=== PATIENT | male | born 1950 | race Caucasian/White ===

== ENCOUNTER 2018-02-21 16:04 | Emergency (ER) | payer MEDICARE, SELFPAY ==
[2018-02-21 16:12] VITALS: BP 112/69; PULSE 60; RESP 20; TEMP 36.6; O2SAT 100; BMI 21.9
--- NOTE | 2018-02-21 16:18 | PC.NURSE ---
Laceration sustained by machinery working at home. about 1.5cm U shape wound around medial side of R thumb. Small bleeding noted and pt had applied direct pressure and ice pack [employer]NA[employer]. Td injection maybe in 2015/2016. Pt had lightheadedness on the way to ER, pt remaining in supine position while waiting and for RAD testing.
--- NOTE | 2018-02-21 16:27 | DI.RAD.S_ITS ---
PROCEDURE: XR FINGER RT MIN 2V INDICATIONS: laceration to right thumb - foreign bodies. TECHNIQUE: AP hand, 2 views of the first finger(s) acquired. COMPARISON: None. FINDINGS: Bones: No fractures or dislocations. No suspicious bony lesions. Soft tissues: No suspicious soft tissue calcifications. IMPRESSION: No fracture or foreign body seen. Dictated by: Valeriy Ballard M.D. on 02/21/2018 at 17:35 Approved by: Valeriy Ballard M.D. on 02/21/2018 at 17:36
--- NOTE | 2018-02-21 17:12 | PC.NURSE ---
Wound cleansed with pressure irrigation of NS. pt had mild vasovagal sx-lightheadedness but tolerated. DR BOWER suturing the site.
--- NOTE | 2018-02-21 17:31 | PC.NURSE ---
Pt and MOP evaluated by counselor via phone-[facility]gu[facility]. PA conversing with the counselor.
--- NOTE | 2018-02-21 17:55 | PC.NURSE ---
Wound dressed after bacitrain applied and covered with non-adhesive dressing, kurling and tubular gauze. Pt advised to keep dressing CDI for 24hrs and recheck wound.
--- NOTE | 2018-02-21 17:59 | ED_ITS ---
HPI - Wound/Laceration General Chief Complaint: Wound/Laceration Stated Complaint: CUT RT THUMB History of Present Illness HPI narrative: HPI 68-year-old male non-smoker presents for evaluation of a laceration on the medial aspect of his thumb immediately lateral to the nail bed that he sustained several hours prior to arrival when he was attempting to free a rototiller chandan and the clutch inadvertently engaged leading to the tiller blades striking his thumb. TD up to date. ROS with no recent constitutional symptoms. Exam Gen: Pleasant, nontoxic-appearing, resting comfortably. HEENT: NC, AT, PEERL, EOMI. Resp: Unlabored respirations with a normal work of breathing. Card: Extremities warm and well perfused. GI: Non-distended. : Deferred MSK: right thumb with a 2.5-3 cm long laceration starting at the distal aspect of the medial nail fold, laceration extends along the nail fold margin to the intersection of the proximal nail fold before transversely extending in a curvilinear U-shape to the pad of the finger. Patient with 5/5 flexion, extension, abduction, adduction without laxity or malalignment at the IP and MCP joints, brisk distal capillary refill, distal sensation grossly intact to touch. Neuro: AO x 3, no facial asymmetry, vision and hearing WNL. Heme/Lymph: Deferred Skin: Normal color with no visible lesions (other than noted above). Psych: Mood and affect appropriate. XR R thumb: no fracture or foreign body seen. MDM Previous chart, nursing note, and vitals reviewed. A/P: 68-year-old male non-smoker presents for evaluation of a laceration on the medial aspect of his thumb immediately lateral to the nail bed that he sustained several hours prior to arrival when he was attempting to free a rototiller chandan and the clutch inadvertently engaged leading to the tiller blades striking his thumb; TD up to date. CMS intact. Laceration repaired as documented below, cephalexin for prophylaxis provided. Patient to follow up with orthopedics. Laceration Repair Verbal consent obtained. Wound cleaned with 500 mL sterile saline with pressure irrigation. After 30 seconds of cleaning with chlorhexidine a proximal digital block was performed using approximately 2 ML in total of 1% lidocaine with epinephrine. Good anesthesia achieved. Minimal debriding of tissue required. No foreign bodies removed, entirety of wound well visualized with no remaining foreign bodies appreciated. Using a clean procedure the wound was repaired with 3 4-0 Vicryl buried sutures , dermal layer closed with 10 4-0nylon simple interrupted sutures. No undermining required, patient tolerated the procedure well without apparent complications. Impression: laceration (please reference below for remainder of encounter information) [facility] Social History Smoking Status: Never smoker Exam Initial Vital Signs Initial Vital Signs: Vital Signs Temperature 97.8 F 02/21/18 16:12 Pulse Rate 60 02/21/18 16:12 Respiratory Rate 20 02/21/18 16:12 Blood Pressure 112/69 02/21/18 16:12 Pulse Oximetry 100 02/21/18 16:12 Course Orders Ordered: ED Orders 02/21/18 16:27 XR finger RT min 2V Stat Vital Signs - 8 hr 02/21/18 16:12 Temperature 97.8 F Pulse Rate 60 Respiratory Rate 20 Blood Pressure 112/69 Pulse Oximetry 100
[2018-02-21 18:03] VITALS: BP 96/63; PULSE 61; RESP 14; O2SAT 100
--- NOTE | 2018-02-21 18:03 | PC.NURSE ---
Vs obtained and noted BP as 96/63. Pt denies cp, sob or dizziness at this time and states it is his normal range BP.
[2018-02-21] MEDS: cephALEXin 250 MG PREPACK 1 BOTTLE MISC (18:45)
== END 2018-02-21 18:15 | disposition home or self-care (01) ==
LOC: ED 18:18
PROVIDERS: Emergency Provider Emergency Medicine
DX: S61.011A Laceration without foreign body of right thumb without damage to nail, initial encounter (principal); W29.3XXA Contact with powered garden and outdoor hand tools and machinery, initial encounter
CPT/HCPCS: 12001; 73140; 99283; 99284

== ENCOUNTER → 2020-10-26 13:14 | Outpatient (CLI) | payer OTHER, SELFPAY ==
[2020-10-26] MEDS: COVID-19 VACC, Ad26(JANSSEN)/PF 0.5 ML IM (13:21)
== END ==
PROVIDERS: Visit Provider Internal Medicine
DX: Z23 Encounter for immunization (principal)
CPT/HCPCS: 0031A; 91303

== ENCOUNTER 2022-04-10 13:07 | Emergency (ER) | payer MEDICARE, SELFPAY ==
[2022-04-10] VITALS (7 sets, daily range): BP systolic 122–138; BP diastolic 60–74; PULSE 58–63; RESP 14–16; O2SAT 94–100; BMI 23.1
--- NOTE | 2022-04-10 16:32 | PC.NURSE ---
After swallow screen, pt began hiccuping and states It feels constricted in the the lower throat area. He had to spit up water back into the bag. Dr. Garvey notified.
--- NOTE | 2022-04-10 16:35 | ED.SKABFB ---
HPI - Skin/Abscess/Foreign Bdy General Chief complaint: Skin/Abscess/Foreign Body Stated complaint: Can't swallow- throat constricted Time Seen by Provider: 04/10/22 15:43 Source: patient Mode of arrival: Ambulatory Limitations: no limitations History of Present Illness HPI narrative: Patient here for dysphagia. Since last night. He ate some potatoes as well as salmon. He had trouble with eating and swallowing the salmon. Since then he is had reflux as well as difficulty swallowing saliva. Bedside testing with water is in able to complete a cup of water. He is spitting up the water. States 10 years ago had similar symptoms and sounds like he had esophageal dilatation. Is not on daily antacids. No trouble breathing. Denies any chest pain. Related Data Previous Rx's Medication Instructions Recorded cephalexin 500 mg capsule 500 mg PO QID #40 caps 02/21/18 hydrocodone 5 mg-acetaminophen 325 See Rx Instructions .Route 02/21/18 mg tablet ([place]) .COMPLEX #10 tabs pantoprazole 40 mg tablet,delayed 40 mg PO DAILY #30 tabs 04/10/22 release (Protonix) Allergies Allergy/AdvReac Type Severity Reaction Status Date / Time No Known Drug Allergies Allergy Verified 04/10/22 13:30 Review of Systems Review of Systems Narrative: GENERAL: Denies chills, fatigue, malaise, fever, sweats. HEENT: Denies sinus pain, ear pain, sore throat RESPIRATORY: Denies dyspnea, cough CARDIOVASCULAR: Denies chest pain, palpitations GASTROINTESTINAL: Denies nausea, vomiting, abdominal pain, positive for dysphagia : Denies dysuria, frequency, hematuria MUSCULOSKELETAL: denies muscle or bony pain SKIN: Denies rash, skin lesions NEUROLOGIC: Denies weakness, numbness ROS Unobtainable: All systems reviewed & are unremarkable except as noted in HPI and below Patient History Social History Smoking Status: Never smoker Smoking Status: Never smoker alcohol intake frequency: 0-2 drinks per day Substance Use Type: does not use Exam Narrative Exam Narrative: GENERAL: in no distress, not toxic not dyspneic HEAD: Normocephalic. EYES: Pupils equal round No scleral icterus. ENT: Mucous membranes moist. NECK: Trachea midline. CARDIOVASCULAR: Regular rate and rhythm without murmurs RESPIRATORY: Clear to auscultation. Breath sounds equal bilaterally. No wheezes, rales, or rhonchi. GASTROINTESTINAL: Abdomen soft, non-tender EXTREMITIES: No gross deformities. NEURO: AOx4. SKIN: Warm and dry PSYCH: Not anxious, is cooperative Initial Vital Signs Initial Vital Signs: Vital Signs Pulse Rate 60 04/10/22 13:30 Respiratory Rate 14 04/10/22 13:30 Blood Pressure 138/60 04/10/22 13:30 Pulse Oximetry 100 04/10/22 13:30 Oxygen Delivery Method 04/10/22 13:30 Course Course Course Narrative: No new issues during course of stay Orders Ordered: ED Orders 04/10/22 16:38 CBC Auto Diff [Complete Blood Count AUTO DIFF] Stat CMP [Comprehensive Metabolic Panel] Stat Discontinued Medications Glucagon (Glucagon,Human Recombinant 1 Mg/Ml Vial) 1 mg IV NOW ONE Stop: 04/10/22 16:36 Last Admin: 04/10/22 17:16 Dose: 1 mg Documented By: JARON Pantoprazole Sodium (Pantoprazole 40 Mg Vial) 40 mg IV NOW ONE Stop: 04/10/22 17:37 Last Admin: 04/10/22 17:42 Dose: 40 mg Documented By: NARAYAN Reevaluation(s) Reevaluation #1: Patient able to drink a glass of water without vomiting. Feeling much better at this time. Reviewed with patient likely will need esophageal dilatation but he does not want it today and desires follow-up with general surgeon to do this. Time: 17:37 Consultations Consultation #1: Spoke with general surgeon, Dr. Jones, patient can follow up in his office outpatient for evaluation for esophageal dilatation. Time: 17:37 Vital Signs Vital signs: Vital Signs - 8 hr 04/10/22 13:30 04/10/22 15:19 04/10/22 15:30 Pulse Rate 60 58 L Respiratory Rate 14 Blood Pressure 138/60 123/74 125/70 Pulse Oximetry 100 99 Oxygen Delivery Method Room Air 04/10/22 15:30 04/10/22 16:00 04/10/22 16:00 Pulse Rate 60 58 L Respiratory Rate Blood Pressure 126/66 Pulse Oximetry 99 99 Oxygen Delivery Method Room Air Room Air 04/10/22 16:30 04/10/22 17:00 04/10/22 18:06 Pulse Rate 58 L 60 63 Respiratory Rate 16 Blood Pressure 122/65 Pulse Oximetry 94 99 99 Oxygen Delivery Method Room Air Room Air Room Air MDM - Skin/Abscess/Foreign Bdy Lab Data Result diagrams: 04/10/22 16:38 04/10/22 16:38 Labs: Lab Results 04/10/22 04/10/22 Range/Units 16:38 16:38 WBC 6.2 (4.5-11.0) X10^3/uL RBC 5.01 (4.5-5.9) X10^6/uL Hgb 14.9 (13.5-17.5) g/dL Hct 43.8 (41-53) % MCV 87.5 (80-100) fL MCH 29.8 (26-34) PG MCHC 34.0 (30-36) % RDW 12.6 (11.6-14.8) % Plt Count 159 (150-400) X10^3/uL Neut % (Auto) 63.5 (50-75) % Lymph % (Auto) 23.9 L (25-40) % [place] % (Auto) 7.2 (3-14) % Eos % (Auto) 4.4 H (2-4) % Baso % (Auto) 1.0 (0-2) % Neut # (Auto) 3900 (9702-8578) /uL Lymph # (Auto) 1500 (6739-2287) /uL [place] # (Auto) 400 (0-900) /uL Eos # (Auto) 300 (0-450) /uL Baso # (Auto) 100 (0-100) /uL Sodium 143 (137-145) mmol/L Potassium 4.2 (3.4-5.1) mmol/L Chloride 105 (98-107) mmol/L Carbon Dioxide 25 (22-32) mmol/L BUN 19 (9-20) mg/dL Creatinine 0.95 (0.66-1.25) mg/dL Estimated GFR > 60 (>60) mL/min BUN/Creatinine Ratio 20.0 (6-22) Glucose 89 (80-110) mg/dL Calcium 9.0 (8.4-10.2) mg/dL Total Bilirubin 0.8 (0.2-1.3) mg/dL AST 36 (17-59) IU/L ALT 31 (<50) IU/L Alkaline Phosphatase 55 (38-126) U/L Total Protein 7.4 (6.3-8.2) g/dL Albumin 4.1 (3.5-5.0) g/dL Globulin 3.3 (1.7-4.1) g/dL Albumin/Globulin Ratio 1.2 (1.0-2.8) MDM Narrative Medical decision making narrative: Appropriate for discharge home. Patient maintaining airway. Also able to swallow fluids without vomiting. I did review with patient and general surgeon, appropriate for outpatient follow-up for evaluation of esophageal dysphagia, may need dilatation. Return precautions reviewed with patient. Not toxic at discharge. Discharge Plan Departure Patient Disposition: Home Clinical Impression: Esophageal dysphagia Instructions: Soft Diet, DI for Esophageal Dysphagia Activity Restrictions/Additional Instructions: Call provided general surgery office in the morning to arrange office appointment to evaluate for trouble swallowing. You may need endoscopy scheduled to evaluate this problem. In the meantime, be sure not to eat meat products. This may cause impaction into the esophagus. May continue soft diet. May have milk shakes/Jell-O/mesh potatoes for example. Return if worse if any questions or concerns Prescriptions: New pantoprazole [Protonix] 40 mg tablet,delayed release (DR/EC) 40 mg PO DAILY Qty: 30 0RF No Action hydrocodone-acetaminophen [[place]] 5-325 mg tablet See Rx Instructions .ROUTE .COMPLEX Qty: 10 0RF Rx Instructions: 1-2 tabs q6hr prn pain cephalexin 500 mg capsule 500 mg PO QID Qty: 40 0RF Referrals: Omero Jones MD [Physician] - Med Mcghee MD [Primary Care Provider] - Visit Report Forms: Patient Portal/API
[2022-04-10 17:01] LABS: Add Manual Diff / Slide Review NO; Basophils Absolute Auto 100 /uL (0-100); Eosinophils Absolute Auto 300 /uL (0-450); Eosinophils Percent Auto 4.4 % (2-4); Hematocrit 43.8 % (41-53); Hemoglobin 14.9 g/dL (13.5-17.5); Lymphocytes Absolute Auto 1500 /uL (1100-4500); Lymphocytes Percent Auto 23.9 % (25-40); Mean Corpuscular Hemoglobin 29.8 PG (26-34); Mean Corpuscular Volume 87.5 fL (80-100); Monocytes Absolute Auto 400 /uL (0-900); Monocytes Percent Auto 7.2 % (3-14); Neutrophils Absolute Auto 3900 /uL (1500-7000); Neutrophils Percent Auto 63.5 % (50-75); Platelet Count 159 X10^3/uL (150-400); Red Blood Cell Count 5.01 X10^6/uL (4.5-5.9); Red Cell Distribution Width 12.6 % (11.6-14.8); White Blood Cell Count 6.2 X10^3/uL (4.5-11.0)
[2022-04-10] MEDS: GLUCAGON,HUMAN RECOMBINANT 1 MG/ML VIAL IV (17:16)
[2022-04-10 17:24] LABS: Alanine Aminotransferase 31 IU/L (<50); Albumin 4.1 g/dL (3.5-5.0); Albumin Globulin Ratio 1.2 (1.0-2.8); Alkaline Phosphatase 55 U/L (38-126); Aspartate Aminotransferase 36 IU/L (17-59); Bilirubin Total 0.8 mg/dL (0.2-1.3); Blood Urea Nitrogen 19 mg/dL (9-20); Carbon Dioxide 25 mmol/L (22-32); Chloride 105 mmol/L (98-107); Estimated Glomerular Filt Rate > 60 mL/min (>60); Globulin 3.3 g/dL (1.7-4.1); Glucose 89 mg/dL (80-110); HEMOLYSIS 18 (0-50); Potassium 4.2 mmol/L (3.4-5.1); Sodium 143 mmol/L (137-145); Total Protein 7.4 g/dL (6.3-8.2)
[2022-04-10] MEDS: PANTOPRAZOLE 40 MG VIAL IV (17:42)
== END 2022-04-10 18:06 | disposition home or self-care (01) ==
PROVIDERS: Emergency Provider Emergency Medicine; PCP Family Medicine
DX: R13.10 Dysphagia, unspecified (principal)
CPT/HCPCS: 36415; 80053; 85025; 96374; 96375; 99284; C9113; J1610

== ENCOUNTER 2022-11-11 12:18 | Emergency (ER) | payer MEDICARE, SELFPAY ==
[2022-11-11 12:29] VITALS: BP 120/57; PULSE 65; RESP 18; TEMP 36.3; O2SAT 96; BMI 22.8
[2022-11-11] MEDS: TET,DIPH,PERTUSS(ACELL),VAC/PF 0.5 ML SYRINGE IM (13:09)
--- NOTE | 2022-11-11 18:59 | ED_ITS ---
HPI - Skin/Abscess/Foreign Bdy <Staci Bajwa PA-C - Last Filed: 11/11/22 20:34> General Chief complaint: Skin/Abscess/Foreign Body Stated complaint: Puncture wound in left leg, lower calf Time Seen by Provider: 11/11/22 12:42 Source: patient Mode of arrival: Ambulatory Limitations: no limitations History of Present Illness HPI narrative: 72-year-old male presents to the ED with 2 abrasions sustained to the anterior left lower leg yesterday. Patient states that he sustained the abrasions from scraping his garcia on a nail. Patient is concerned that his Tdap is not up-to-date and would like to get a Tdap shot. Denies fevers, chills, numbness, tingling, weakness. Related Data Previous Rx's Medication Instructions Recorded cephalexin 500 mg capsule 500 mg PO QID #40 caps 02/21/18 hydrocodone 5 mg-acetaminophen 325 See Rx Instructions .Route 02/21/18 mg tablet ([place]) .COMPLEX #10 tabs pantoprazole 40 mg tablet,delayed 40 mg PO DAILY #30 tabs 04/10/22 release (Protonix) Allergies Allergy/AdvReac Type Severity Reaction Status Date / Time Penicillins Allergy Intermediate Rash Verified 11/11/22 13:24 Review of Systems <Staci Bajwa PA-C - Last Filed: 11/11/22 20:34> Review of Systems ROS Unobtainable: All systems reviewed & are unremarkable except as noted in HPI and below Constitutional Constitutional: Denies chills, Denies fatigue, Denies fever(s), Denies frequent falls, Denies lethargy and Denies weakness Eyes Eyes: Denies change in vision, Denies eye discharge, Denies irritation and Denies loss of vision ENT Ears, Nose, Mouth, and Throat: Denies change in voice, Denies dizziness, Denies neck pain, Denies sore throat and Denies throat swelling Cardiovascular Cardiovascular: Denies chest pain, Denies irregular heart rhythm, Denies lightheadedness, Denies palpitations, Denies dyspnea, Denies dyspnea on exertion and Denies orthopnea Respiratory Respiratory: Denies cough, Denies dyspnea, Denies dyspnea on exertion and Denies wheezing Gastrointestinal Gastrointestinal: Denies abdominal pain, Denies change in bowel habits, Denies diarrhea, Denies nausea and Denies vomiting Genitourinary Genitourinary: Denies hematuria, Denies flank pain, Denies urinary incontinence and Denies urinary urgency Musculoskeletal Musculoskeletal: Denies back pain, Denies muscle weakness, Denies neck pain, Denies numbness and Denies tingling Integumentary/Breasts Skin/Breast: Denies pruritus, Denies erythema, Denies rash and Denies wounds Comments: Left lower leg abrasions Neurologic Neurologic: Denies behavioral changes, Denies confusion, Denies dizziness, Denies frequent falls, Denies loss of vision, Denies numbness, Denies tingling and Denies weakness Psychiatric Psychiatric: Denies anxiety, Denies behavioral changes, Denies confusion, Denies depression, Denies homicidal ideation and Denies suicidal ideation Endocrine Endocrine: Denies fatigue, Denies flushing and Denies palpitations Hematologic/Lymphatic Hematologic/Lymphatic: Denies easy bruising Allergic/Immunologic Allergic/Immunologic: Denies urticaria, Denies throat swelling and Denies wheezing Patient History <Staci Bajwa PA-C - Last Filed: 11/11/22 20:34> Social History Smoking Status: Never smoker Smoking Status: Never smoker alcohol intake frequency: 0-2 drinks per day Substance Use Type: does not use Exam <Staci Bajwa PA-C - Last Filed: 11/11/22 20:34> Narrative Exam Narrative: Const General:?cooperative, healthy appearing and comfortable [facility] Head:?normal to inspection Ears:?hearing grossly normal bilaterally Nose:?external nose normal Face and sinus:?normal facial exam and sinuses nontender Mouth:?oral mucosae normal Throat:?posterior oropharynx normal Eyes General:?appearance normal, both eyes and all related structures Neck Neck:?normal visual inspection and no lymphadenopathy noted Resp Effort & Inspection:?normal respiratory effort Auscultation:?clear to auscultation bilaterally Cardio Rate:?regular rate Rhythm:?regular rhythm Integumentary 2 abrasions noted to left garcia. Not bleeding and beginning to heal over. No signs of infection noted. Patient is neurovascularly intact. There is no bony tenderness to palpation. Neuro General:?patient alert, patient awake and patient oriented x3 Initial Vital Signs Initial Vital Signs: Vital Signs Temperature 97.4 F L 11/11/22 12:29 Pulse Rate 65 11/11/22 12:29 Respiratory Rate 18 11/11/22 12:29 Blood Pressure 120/57 L 11/11/22 12:29 Pulse Oximetry 96 11/11/22 12:29 Oxygen Delivery Method Room Air 11/11/22 12:29 <Ministerio Garcia DO - Last Filed: 11/12/22 11:02> Initial Vital Signs Initial Vital Signs: Vital Signs Temperature 97.4 F L 11/11/22 12:29 Pulse Rate 65 11/11/22 12:29 Respiratory Rate 18 11/11/22 12:29 Blood Pressure 120/57 L 11/11/22 12:29 Pulse Oximetry 96 11/11/22 12:29 Oxygen Delivery Method Room Air 11/11/22 12:29 Course <Staic Bajwa PA-C - Last Filed: 11/11/22 20:34> Orders Ordered: Discontinued Medications Diphtheria/Tetanus/Acell Pertussis (Tet,Diph,Pertuss(Acell),Vac/Pf 0.5 Ml Syringe) 0.5 ml IM .ONCE ONE Stop: 11/11/22 12:33 Last Admin: 11/11/22 13:09 Dose: 0.5 ml Documented By: KLS Vital Signs Vital signs: Vital Signs - 8 hr 11/11/22 12:29 Temperature 97.4 F L Pulse Rate 65 Respiratory Rate 18 Blood Pressure 120/57 L Pulse Oximetry 96 Oxygen Delivery Method Room Air <Ministerio Garcia DO - Last Filed: 11/12/22 11:02> Orders Ordered: Discontinued Medications Diphtheria/Tetanus/Acell Pertussis (Tet,Diph,Pertuss(Acell),Vac/Pf 0.5 Ml Syringe) 0.5 ml IM .ONCE ONE Stop: 11/11/22 12:33 Last Admin: 11/11/22 13:09 Dose: 0.5 ml Documented By: KLS Vital Signs Vital signs: Vital Signs - 8 hr 11/11/22 12:29 Temperature 97.4 F L Pulse Rate 65 Respiratory Rate 18 Blood Pressure 120/57 L Pulse Oximetry 96 Oxygen Delivery Method Room Air MDM - Skin/Abscess/Foreign Bdy <Staci Bajwa PA-C - Last Filed: 11/11/22 20:34> MDM Narrative Medical decision making narrative: 72-year-old male presents to the ED with 2 abrasions sustained to the anterior left lower leg yesterday. Patient's wounds are both abrasions, not requiring any repair or imaging. Tdap was updated. Patient is neurovascularly intact. Discussed signs of infection with patient. Wound care also discussed with patient. Patient agrees to return to the ED if he notes any signs of infection. Medical records reviewed: Yes Discharge Plan Departure Patient Disposition: Home Clinical Impression: Abrasion Instructions: DI for Abrasion Activity Restrictions/Additional Instructions: You were seen in the ED today for abrasions sustained on your left lower leg. The abrasions are shallow and do not need any interventions other than keeping it clean and dry and allowing them to heal. We have updated your tetanus shot today as well. As your wound heals, please monitor to look for signs of infection including redness, swelling, pain, discharge, warmth. Return to the ED if you note any signs of infection. Prescriptions: No Action pantoprazole [Protonix] 40 mg tablet,delayed release (DR/EC) 40 mg PO DAILY Qty: 30 0RF hydrocodone-acetaminophen [[place]] 5-325 mg tablet See Rx Instructions .ROUTE .COMPLEX Qty: 10 0RF Rx Instructions: 1-2 tabs q6hr prn pain cephalexin 500 mg capsule 500 mg PO QID Qty: 40 0RF Referrals: Med Mcghee MD [Primary Care Provider] - Stand Alone Forms: Patient Portal/API <Ministerio Garcia DO - Last Filed: 11/12/22 11:02> Cosign ED Attending Adiel Attestation: I was immediately available in the department for consultation. Documentation has been reviewed. I agree with assessment and plan.
== END 2022-11-11 13:15 | disposition home or self-care (01) ==
PROVIDERS: Emergency Provider Student in an Organized Health Care Education/Training Program; PCP Family Medicine
DX: S80.812A Abrasion, left lower leg, initial encounter (principal); Z23 Encounter for immunization
CPT/HCPCS: 90471; 99283; 90715

== ENCOUNTER 2023-04-19 16:49 | Observation (INO) | payer MEDICARE, SELFPAY ==
[2023-04-19] VITALS (7 sets, daily range): BP systolic 121–137; BP diastolic 75–86; PULSE 80–97; RESP 12–20; TEMP 36.2–37.1; O2SAT 93–98; BMI 22.4
--- NOTE | 2023-04-19 17:22 | ED.SKABFB ---
HPI - Skin/Abscess/Foreign Bdy General Chief complaint: Skin/Abscess/Foreign Body Stated complaint: blockage in esophagus Time Seen by Provider: 04/19/23 17:12 Source: patient Mode of arrival: Ambulatory Limitations: no limitations History of Present Illness HPI narrative: 73-year-old male presents from home by private vehicle for food bolus times 24 hours. Patient states that he was eating meat last night and it got hung up in his throat. He has been unable to tolerate his secretions and is spitting up into an emesis bag. Related Data Previous Rx's Medication Instructions Recorded cephalexin 500 mg capsule 500 mg PO QID #40 caps 02/21/18 hydrocodone 5 mg-acetaminophen 325 See Rx Instructions .Route 02/21/18 mg tablet ([place]) .COMPLEX #10 tabs pantoprazole 40 mg tablet,delayed 40 mg PO DAILY #30 tabs 04/10/22 release (Protonix) Allergies Allergy/AdvReac Type Severity Reaction Status Date / Time Penicillins Allergy Intermediate Rash Verified 11/11/22 13:24 Review of Systems Review of Systems Narrative: CONSTITUTIONAL- Denies: fever, chills, fatigue HEENT- Denies: sore throat, nosebleed, vision changes RESPIRATORY- Denies: shortness of breath, cough, wheezing CARDIAC- Denies: chest pain, edema, orthopnea GI-reports: Food bolus Denies: abdominal pain, nausea, vomiting, constipation, diarrhea - Denies: frequency, dysuria, hematuria, flank pain MSK- Denies: extremity pain, extremity swelling, joint pain, joint swelling SKIN- Denies: rash, itching, burn, swelling NEUROLOGICAL- Denies: headache, numbness, weakness, dizziness PSYCHIATRIC- Denies: anxiety, depression, suicidal ideation, homicidal ideation Patient History Social History Smoking Status: Never smoker Smoking Status: Never smoker alcohol intake frequency: 0-2 drinks per day Substance Use Type: does not use Exam Initial Vital Signs Initial Vital Signs: Vital Signs Temperature 98.7 F 04/19/23 17:00 Pulse Rate 97 H 04/19/23 17:00 Respiratory Rate 16 04/19/23 17:00 Blood Pressure 125/86 04/19/23 17:00 Pulse Oximetry 98 04/19/23 17:00 Oxygen Delivery Method Room Air 04/19/23 17:00 Const: Awake, alert, uncomfortable, sitting upright in bed, actively spitting into an emesis bag Eyes: PERRL, EOMI, conjunctiva normal ENT: Atraumatic, dentition normal, mucous membranes moist Cardiac: regular rate, regular rhythm RESP: unlabored, clear bilaterally, no wheezing GI: Atraumatic, soft, nontender, nondistended MSK: Atraumatic, full range of motion, pulses equal Skin: Warm, Dry, intact, no rashes Neuro: AO x3, CN II-XII grossly intact, moves all extremities Psych: affect normal, mood normal, not suicidal, not homicidal Course Course Course Narrative: Food bolus for 24 hours. Attempted to give patient fizzy drinks while jumping up and down, however this was unsuccessful. Attempted glucagon, patient attempted to vomit, however this was also unsuccessful. Call placed to general surgery, who will take the patient to the OR for esophageal food bolus Orders Ordered: ED Orders 04/19/23 17:15 CBC Auto Diff [Complete Blood Count AUTO DIFF] Stat CMP [Comprehensive Metabolic Panel] Stat PT [Prothrombin Time INR] Stat Discontinued Medications Glucagon (Glucagon,Human Recombinant 1 Mg/Ml Vial) 2 mg IV NOW ONE Stop: 04/19/23 17:15 Last Admin: 04/19/23 17:30 Dose: 2 mg Documented By: KM Consultations Consultation #1: Dr. Jones: Will take patient to OR for scope Vital Signs Vital signs: Vital Signs - 8 hr 04/19/23 17:00 Temperature 98.7 F Pulse Rate 97 H Respiratory Rate 16 Blood Pressure 125/86 Pulse Oximetry 98 Oxygen Delivery Method Room Air MDM - Skin/Abscess/Foreign Bdy Differential Diagnosis Differential diagnosis: Likely other (food bolus, vomiting, dysphagia) Lab Data 04/19/23 17:15 04/19/23 17:15 Labs: Lab Results 04/19/23 04/19/23 04/19/23 Range/Units 17:15 17:15 17:15 WBC 6.0 (4.5-11.0) X10^3/uL RBC 5.31 (4.5-5.9) X10^6/uL Hgb 16.1 (13.5-17.5) g/dL Hct 47.3 (41-53) % MCV 89.0 (80-100) fL MCH 30.4 (26-34) PG MCHC 34.1 (30-36) % RDW 12.9 (11.6-14.8) % Plt Count 149 L (150-400) X10^3/uL Neut % (Auto) 62.3 (50-75) % Lymph % (Auto) 24.2 L (25-40) % [place] % (Auto) 8.6 (3-14) % Eos % (Auto) 4.0 (2-4) % Baso % (Auto) 0.9 (0-2) % Neut # (Auto) 3700 (5498-0896) /uL Lymph # (Auto) 1400 (7709-1045) /uL [place] # (Auto) 500 (0-900) /uL Eos # (Auto) 200 (0-450) /uL Baso # (Auto) 100 (0-100) /uL PT 11.9 (10.1-12.7) SECONDS INR 1.0 (0.9-1.3) Sodium 139 (137-145) mmol/L Potassium 3.6 (3.4-5.1) mmol/L Chloride 107 (98-107) mmol/L Carbon Dioxide 21 L (22-32) mmol/L BUN 19 (9-20) mg/dL Creatinine 1.01 (0.66-1.25) mg/dL Estimated GFR > 60 (>60) mL/min BUN/Creatinine Ratio 18.8 (6-22) Glucose 94 (80-110) mg/dL Calcium 9.6 (8.4-10.2) mg/dL Total Bilirubin 1.2 (0.2-1.3) mg/dL AST 31 (17-59) IU/L ALT 40 (<50) IU/L Alkaline Phosphatase 59 (38-126) U/L Total Protein 7.8 (6.3-8.2) g/dL Albumin 4.3 (3.5-5.0) g/dL Globulin 3.5 (1.7-4.1) g/dL Albumin/Globulin Ratio 1.2 (1.0-2.8) Discharge Plan Departure Patient Disposition: Admitted as Observation Clinical Impression: Food bolus obstruction of intestine Admit Date/Time: 04/19/23 18:19 Admit Provider: Omero Jones
[2023-04-19] MEDS: GLUCAGON,HUMAN RECOMBINANT 1 MG/ML VIAL 2 MG IV (17:30)
--- NOTE | 2023-04-19 17:46 | PC.NURSE ---
Pt reports he feels like there is steak caught in his throat from last night at 1700. Pt states he cannot swallow his own secretions.
[2023-04-19 17:51] LABS: Prothrombin Time 11.9 SECONDS (10.1-12.7)
[2023-04-19 17:52] LABS: Add Manual Diff / Slide Review NO; Basophils Absolute Auto 100 /uL (0-100); Basophils Percent Auto 0.9 % (0-2); Eosinophils Absolute Auto 200 /uL (0-450); Hematocrit 47.3 % (41-53); Hemoglobin 16.1 g/dL (13.5-17.5); Lymphocytes Absolute Auto 1400 /uL (1100-4500); Lymphocytes Percent Auto 24.2 % (25-40); Mean Corpuscular HGB Conc 34.1 % (30-36); Mean Corpuscular Hemoglobin 30.4 PG (26-34); Monocytes Absolute Auto 500 /uL (0-900); Monocytes Percent Auto 8.6 % (3-14); Neutrophils Absolute Auto 3700 /uL (1500-7000); Neutrophils Percent Auto 62.3 % (50-75); Platelet Count 149 X10^3/uL (150-400); Red Blood Cell Count 5.31 X10^6/uL (4.5-5.9); Red Cell Distribution Width 12.9 % (11.6-14.8)
[2023-04-19 17:57] LABS: Alanine Aminotransferase 40 IU/L (<50); Albumin 4.3 g/dL (3.5-5.0); Albumin Globulin Ratio 1.2 (1.0-2.8); Alkaline Phosphatase 59 U/L (38-126); Aspartate Aminotransferase 31 IU/L (17-59); BUN Creatinine Ratio 18.8 (6-22); Bilirubin Total 1.2 mg/dL (0.2-1.3); Blood Urea Nitrogen 19 mg/dL (9-20); Calcium 9.6 mg/dL (8.4-10.2); Carbon Dioxide 21 mmol/L (22-32); Chloride 107 mmol/L (98-107); Estimated Glomerular Filt Rate > 60 mL/min (>60); Globulin 3.5 g/dL (1.7-4.1); Glucose 94 mg/dL (80-110); HEMOLYSIS < 15 (0-50); Potassium 3.6 mmol/L (3.4-5.1); Sodium 139 mmol/L (137-145); Total Protein 7.8 g/dL (6.3-8.2)
--- NOTE | 2023-04-19 18:45 | P.HP_ITS ---
History of Present Illness History of Present Illness Date Patient Seen: 04/19/23 Time Patient Seen: 18:45 Chief complaint: blockage in esophagus Narrative: 73 y.o man history of esophageal dysphagia who presented to the [facility] ER with complaint of food lodged in his esophagus. Ate meat last night and has been unable to dislodge it from his esophagus. ER tried carbonated beverage and Glucagon without success. Spitting up his secretions. [facility] Social History Smoking Status: Never smoker Meds Home Medications and Allergies Home Medications Medication Instructions Recorded Confirmed Type cephalexin 500 mg capsule 500 mg PO QID #40 caps 02/21/18 Rx hydrocodone 5 mg-acetaminophen 325 See Rx Instructions .Route 02/21/18 Rx mg tablet ([place]) .COMPLEX #10 tabs pantoprazole 40 mg tablet,delayed 40 mg PO DAILY #30 tabs 04/10/22 Rx release (Protonix) Allergies Allergy/AdvReac Type Severity Reaction Status Date / Time Penicillins Allergy Intermediate Rash Verified 11/11/22 13:24 Exam Vital Signs (past 8 hours): - 04/19/23 17:00 04/19/23 18:34 Temperature 98.7 F Pulse Rate 97 H 84 Respiratory Rate 16 18 Blood Pressure 125/86 132/75 Pulse Oximetry 98 97 Oxygen Delivery Method Room Air Room Air Oxygen Delivery Method Room Air Narrative Exam Narrative: Gen-Elderly man alert and oriented Chest-Non labored resp Abdomen-Soft non tender Objective Labs 04/19/23 17:15 04/19/23 17:15 Labs: Laboratory Results - last 24 hr 04/19/23 04/19/23 04/19/23 17:15 17:15 17:15 WBC 6.0 RBC 5.31 Hgb 16.1 Hct 47.3 MCV 89.0 MCH 30.4 MCHC 34.1 RDW 12.9 Plt Count 149 L Neut % (Auto) 62.3 Lymph % (Auto) 24.2 L [place] % (Auto) 8.6 Eos % (Auto) 4.0 Baso % (Auto) 0.9 Neut # (Auto) 3700 Lymph # (Auto) 1400 [place] # (Auto) 500 Eos # (Auto) 200 Baso # (Auto) 100 PT 11.9 INR 1.0 Sodium 139 Potassium 3.6 Chloride 107 Carbon Dioxide 21 L BUN 19 Creatinine 1.01 Estimated GFR > 60 BUN/Creatinine Ratio 18.8 Glucose 94 Calcium 9.6 Total Bilirubin 1.2 AST 31 ALT 40 Alkaline Phosphatase 59 Total Protein 7.8 Albumin 4.3 Globulin 3.5 Albumin/Globulin Ratio 1.2 Assessment & Plan Assessment and plan (1) Food bolus obstruction of intestine: Status: Acute Assessment & Plan narrative: 73 y.o man history of esophageal dysphagia here with a esophageal food bolus. Conservative measures have not been successful. Will proceed to OR for diagnostic and therapeutic esophagoduodenoscopy. Overview of the procedure discussed. Procedural risks including but not limited hemorrhage, esopahgeal injury discussed He provides his written and verbal consent to proceed.
[2023-04-19] MEDS: LACTATED RINGERS 1,000 ML 42 ML IV (18:49)
--- NOTE | 2023-04-19 18:58 | PM.OP.EGD ---
Operative Date/Time/Diagnoses Date of procedure: 04/19/23 Time of procedure: 18:58 Pre-op diagnosis: Esophageal food bolus Post-op diagnosis: same Procedure & Clinicians Study performed: Therapeutic esophagoduodenoscopy Same procedure as scheduled: Yes Indications: 73-year-old male history of esophageal dysphagia here with an esophageal food impaction. Failed conservative measures here for EGD. Surgeon: Omero Jones Procedure Notes Procedure in detail: The history and physical was performed/updated and the patient is ASA class is 2. The procedure was discussed in detail with the patient. Potential risks complications including infection, bleeding, missed diagnosis, perforation, need for surgery, and were explained. Their questions were answered and informed consent was obtained. Patient placed in left lateral decubitus position. Time out was performed. Procedural sedation was administered by Anesthesia. A bite block was placed. the scope was inserted into the mouth. We encountered a food bolus in the distal esophagus. We are able to push the bolus successfully into the stomach. The distal esophagus is narrow but accommodates the diameter of the EGD scope easily. No esophageal mass. The pylorus was intubated and the duodenum was normal to the 2nd portion. The scope was retroflexed within the stomach and there was a small hiatal hernia. Stomach was desufflated and scope removed. The patient tolerated the procedure well and will be discharged when they meet criteria. Specimen(s): none sent Impression: Esophageal food bolus Post-procedure Plan for aftercare: Follow up with your primary care provider in regards to your esophageal dysphagia Disposition: same day surgery
== END 2023-04-19 19:31 | disposition home or self-care (01) ==
LOC: ED 18:14 → AC 18:20
PROVIDERS: Admitting Provider Surgery; Emergency Provider Emergency Medicine; PCP Family Medicine; Referring Provider Emergency Medicine; Visit Provider Surgery
PROC: 0DJ08ZZ Inspection of Upper Intestinal Tract, Via Natural or Artificial Opening Endoscopic (ICD-10-PCS; CPT 43235; principal; 2023-04-19 19:00)
DX: T18.128A Food in esophagus causing other injury, initial encounter (principal)
CPT/HCPCS: 43247; 36415; 80053; 85025; 85610; 96374; 99221; 99284; G0378; J1610; J2704

== ENCOUNTER → 2023-11-02 13:58 | Outpatient (CLI) | payer MEDICARE, SELFPAY ==
[2023-11-02 14:51] LABS: Add Manual Diff / Slide Review NO; Basophils Absolute Auto 0 /uL (0-100); Basophils Percent Auto 0.6 % (0-2); Eosinophils Absolute Auto 300 /uL (0-450); Eosinophils Percent Auto 3.5 % (2-4); Hematocrit 42.1 % (41-53); Hemoglobin 14.5 g/dL (13.5-17.5); Lymphocytes Absolute Auto 1500 /uL (1100-4500); Lymphocytes Percent Auto 20.7 % (25-40); Mean Corpuscular HGB Conc 34.3 % (30-36); Mean Corpuscular Hemoglobin 30.2 PG (26-34); Mean Corpuscular Volume 87.9 fL (80-100); Monocytes Absolute Auto 800 /uL (0-900); Monocytes Percent Auto 10.5 % (3-14); Neutrophils Absolute Auto 4700 /uL (1500-7000); Neutrophils Percent Auto 64.7 % (50-75); Platelet Count 169 X10^3/uL (150-400); Red Cell Distribution Width 12.6 % (11.6-14.8); White Blood Cell Count 7.3 X10^3/uL (4.5-11.0)
[2023-11-02 15:49] LABS: Prostate Specific Antigen 1.27 ng/mL (0.10-4.00)
[2023-11-05 14:20] LABS: Chromogranin A, Serum 195.1 ng/mL (0.0-101.8)
== END ==
PROVIDERS: PCP Family Medicine; Referring Provider Internal Medicine Hematology & Oncology; Visit Provider Internal Medicine Hematology & Oncology
DX: C7A.8 Other malignant neuroendocrine tumors (principal); D3A.8 Other benign neuroendocrine tumors
CPT/HCPCS: 36415; 84153; 85025; 86316

== ENCOUNTER → 2023-11-16 15:17 | Outpatient (CLI) | payer MEDICARE, SELFPAY ==
--- NOTE | 2023-11-16 15:25 | DI.RAD.S_ITS ---
PROCEDURE: XR WRIST RT MIN 3V INDICATIONS: bilateral hand and wrist pain, effusion TECHNIQUE: 4 views of the wrist were acquired. COMPARISON: None. FINDINGS: Bones: No fractures or dislocations. 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 No suspicious bony lesions. Soft tissues: No suspicious soft tissue calcifications. IMPRESSION: No acute bony abnormality. 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 Dictated by: Nain Eugene M.D. on 11/16/2023 at 16:21 Approved by: Nain Eugene M.D. on 11/16/2023 at 16:21
--- NOTE | 2023-11-16 15:25 | DI.RAD.S_ITS ---
PROCEDURE: XR HAND RT MIN 3V INDICATIONS: bilateral hand and wrist pain, effusion TECHNIQUE: 3 views of the hand(s) acquired. COMPARISON: None. FINDINGS: Bones: No fractures or dislocations. Carpal bones are normally aligned. No suspicious bony lesions. Soft tissues: No suspicious soft tissue calcifications. IMPRESSION: No acute bony abnormality. Dictated by: Nain Eugene M.D. on 11/16/2023 at 16:19 Approved by: Nain Eugene M.D. on 11/16/2023 at 16:20
--- NOTE | 2023-11-16 15:25 | DI.RAD.S_ITS ---
PROCEDURE: XR HAND LT MIN 3V INDICATIONS: bilateral hand and wrist pain, effusion TECHNIQUE: 3 views of the hand(s) acquired. COMPARISON: None. FINDINGS: Bones: No fractures or dislocations. 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 Carpal bones are normally aligned. No suspicious bony lesions. Soft tissues: No suspicious soft tissue calcifications. IMPRESSION: 1. No acute bony abnormality. 2. 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 Dictated by: Nain Eugene M.D. on 11/16/2023 at 16:19 Approved by: Nain Eugene M.D. on 11/16/2023 at 16:19
--- NOTE | 2023-11-16 15:25 | DI.RAD.S_ITS ---
PROCEDURE: XR WRIST LT MIN 3V INDICATIONS: bilateral hand and wrist pain, effusion TECHNIQUE: 4 views of the wrist were acquired. COMPARISON: None. FINDINGS: Bones: No fractures or dislocations. 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 No suspicious bony lesions. Soft tissues: No suspicious soft tissue calcifications. IMPRESSION: No acute osseous abnormalities. 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 Dictated by: Nain Eugene M.D. on 11/16/2023 at 16:20 Approved by: Nain Eugene M.D. on 11/16/2023 at 16:20
== END ==
PROVIDERS: PCP Family Medicine; Referring Provider Family Medicine; Visit Provider Family Medicine
DX: M18.12 Unilateral primary osteoarthritis of first carpometacarpal joint, left hand (principal); M25.531 Pain in right wrist; M25.532 Pain in left wrist; M25.432 Effusion, left wrist; M25.431 Effusion, right wrist
CPT/HCPCS: 73110; 73120